=== PATIENT | male | born 1990 | race Caucasian/White ===

== ENCOUNTER 2024-01-07 11:02 | Emergency (ER) | payer SELFPAY ==
[~2024-01-07] VITALS: Ht 167.6 cm; Wt 63.5 kg
[2024-01-07 11:10] VITALS: BP 113/71; PULSE 84; RESP 16; TEMP 98.5; O2SAT 98
[2024-01-07] MEDS: ACETAMINOPHEN EXTRA STRENGTH 500 MG TAB PO ONE (11:42)
[2024-01-07] MEDS ORDERED: ACET-10509 PO (12:37)
[2024-01-07] MEDS ORDERED: IBUP-2218 PO (12:37)
[2024-01-07 13:06] VITALS: BP 113/71; PULSE 84; RESP 16; TEMP 98.5; O2SAT 98
== END 2024-01-07 13:10 | disposition home or self-care (01) ==
LOC: MED 11:02
DX: S02.32XA Fracture of orbital floor, left side, initial encounter for closed fracture (principal); S82.841A Displaced bimalleolar fracture of right lower leg, initial encounter for closed fracture; Z79.899 Other long term (current) drug therapy; Y04.8XXA Assault by other bodily force, initial encounter; Y93.89 Activity, other specified; Y92.89 Other specified places as the place of occurrence of the external cause; Y99.8 Other external cause status
CPT/HCPCS: 29515; 70450; 70486; 73610; 99284; Q0092